=== PATIENT | female | born 1990 | race Caucasian/White ===

== ENCOUNTER → 2020-02-18 | Outpatient (CLI) | payer MEDICAID ==
[~2020-02-18] MED LIST: ACYC-114 PO; FENU500C PO; IBUP-1222 PO; IBUP-1223 PO; JUICE PLUS PO; MULT-658 PO; PREN1TAB60 PO
[2020-02-18 11:51] LABS: BASOPHILS # (AUTO) 0.02 x10^3/uL (0-0.1); BASOPHILS % (AUTO) 0 % (0-1); EOSINOPHILS # (AUTO) 0.02 x10^3/uL (0-0.4); EOSINOPHILS % (AUTO) 0 % (1-7); LYMPHOCYTES # (AUTO) 1.62 x10^3/uL (1-3.4); LYMPHOCYTES % (AUTO) 31 % (22-44); MD NO; MEAN CORPUSCULAR HGB CONC 34.1 g/dL (32.4-35.8); MEAN CORPUSCULAR VOLUME 93.8 fL (80-100); MEAN PLATELET VOLUME 9.7 fL (7.4-10.4); MONOCYTES # (AUTO) 0.23 x10^3/uL (0.2-0.8); MONOCYTES % (AUTO) 4 % (2-9); NEUTROPHILS % (AUTO) 64 % (42-75); PLATELET COUNT 239 x10^3/uL (130-400); RED BLOOD COUNT 4.53 x10^6/uL (3.82-5.3); RED CELL DISTRIBUTION WIDTH 13.2 % (9.6-15.2)
[2020-02-18 12:02] LABS: ANION GAP 4 mmol/L (5-15); CALCIUM 8.8 mg/dL (8.5-10.1); CHLORIDE 112 mmol/L (98-107); CREATININE 0.61 mg/dL (0.55-1.02)
== END | disposition home or self-care (01) ==
LOC: MERGE 11:00 → STAR 11:07
PROVIDERS: ATTEND Obstetrics & Gynecology Maternal & Fetal Medicine
DX: Z01.818 Encounter for other preprocedural examination (principal); Z11.59 Encounter for screening for other viral diseases; N94.6 Dysmenorrhea, unspecified; R10.2 Pelvic and perineal pain
CPT/HCPCS: 36415; 80048; 84702; 85025; U0001

== ENCOUNTER 2020-02-22 14:19 | Observation (INO) | payer MEDICAID ==
[~2020-02-22] VITALS: Ht 162.6 cm; Wt 62.2 kg
[2020-02-22 14:32] VITALS: BP 114/63
[2020-02-22] MEDS ORDERED: CHLORHEXIDINE 15 ML UDC MM STA (14:35)
[2020-02-22] MEDS ORDERED: LIDOCAINE-MPF 1%, 2ML INFIL ONE (14:35)
[2020-02-22] MEDS ORDERED: LACTATED RINGERS 1,000 ML IV ONE (14:35)
[2020-02-22] MEDS ORDERED: SCOPOLAMINE 1MG PATCH TD ONE (15:26)
[2020-02-22] MEDS ORDERED: ACETAMINOPHEN 500 MG TABLET ONE (15:26)
[2020-02-22] MEDS ORDERED: GABAPENTIN 300 MG CAPSULE ONE (15:26)
[2020-02-22] MEDS ORDERED: FLUORESCEIN SODIUM 500 MG/5 ML ONE (15:29)
[2020-02-22] MEDS ORDERED: NEOSPORIN OINT, 15GM ONE (15:29)
[2020-02-22] MEDS ORDERED: BUPIVACAINE/PF-EPI 0.25% 1:200K ONE (15:29)
[2020-02-22] MEDS ORDERED: FENTANYL PF 250 MCG/5ML ONE (15:34)
[2020-02-22] MEDS ORDERED: MIDAZOLAM 1 MG/ML, 2ML ONE (15:34)
[2020-02-22] MEDS ORDERED: ONDANSETRON 2MG/ML, 2ML ONE (17:30)
[2020-02-22] MEDS ORDERED: MEPERIDINE/PF 25MG/0.5ML IVPush PRN (17:30)
[2020-02-22] MEDS ORDERED: GLYCOPYRROLATE 0.2MG/1ML, 5ML ONE (17:30)
[2020-02-22] MEDS ORDERED: LABETALOL 5MG/ML, 20ML IV PRN (17:30)
[2020-02-22] MEDS ORDERED: ACETAMINOPHEN 325 MG TABLET PO PRN (17:30)
[2020-02-22] MEDS ORDERED: PROPOFOL 10 MG/ML, 20ML ONE (17:30)
[2020-02-22] MEDS ORDERED: DEXAMETHASONE 4 MG/ML, 1ML ONE (17:30)
[2020-02-22] MEDS ORDERED: OXYcodone 5 MG/5 ML ORAL.SOL UDC PO PRN (17:30)
[2020-02-22] MEDS ORDERED: FENTANYL PF 100 MCG/2ML IV PRN (17:30)
[2020-02-22] MEDS ORDERED: HYDROmorphone 2 MG/ML, 1ML IVPush PRN (17:30)
[2020-02-22] MEDS ORDERED: hydrALAzine 20 MG/ML, 1ML IV PRN (17:30)
[2020-02-22] MEDS ORDERED: ROCURONIUM 10MG/ML,5ML ONE (17:30)
[2020-02-22] MEDS ORDERED: DIAZEPAM 5 MG/ML, 2ML IVPush PRN (17:30)
[2020-02-22] MEDS ORDERED: NEOSTIGMINE 1 MG/ML, 10ML ONE (17:30)
[2020-02-22] MEDS ORDERED: ALBUTEROL SULFATE 2.5 MG/3 ML NPPB PRN (17:30)
[2020-02-22] MEDS ORDERED: SUCCINYLCHOLINE 20 MG/ML, 10ML ONE (17:30)
[2020-02-22] MEDS ORDERED: PROMETHAZINE 25 MG/ML, 1ML IV PRN (17:30)
[2020-02-22] MEDS ORDERED: CEFAZOLIN 1,000 MG ONE (17:30)
[2020-02-22] MEDS ORDERED: SUGAMMADEX 200 MG/2 ML IVPush ONE (17:31)
[2020-02-22] MEDS ORDERED: OXYcodone 5 MG/5 ML ORAL.SOL UDC ONE (18:19)
[2020-02-22] MEDS ORDERED: FENTANYL PF 100 MCG/2ML ONE (18:19)
[2020-02-22] MEDS ORDERED: MEPERIDINE/PF 25MG/ML,1ML ONE (18:20)
[2020-02-22] MEDS ORDERED: ONDANSETRON 2MG/ML, 2ML IV PRN (20:00)
[2020-02-22] MEDS ORDERED: morphine SULFATE 10 MG/ML, 1ML IV PRN (20:00)
[2020-02-22] MEDS: SIMETHICONE 80 MG CHEW TAB PO SCH (20:49)
[2020-02-22] MEDS: KETOROLAC 30 MG/1 ML IV SCH (20:49)
[2020-02-22 21:00] VITALS: BP 104/68
[2020-02-22] MEDS: DOCUSATE 100 MG CAPSULE PO SCH (22:26)
[2020-02-22] MEDS: OXYcodone/APAP 5/325MG TABLET PO PRN (22:27)
[2020-02-22 22:53] LABS: MEAN CORPUSCULAR HEMOGLOBIN 31.7 pg (27.0-34.8); MEAN CORPUSCULAR HGB CONC 33.8 g/dL (32.4-35.8); MEAN PLATELET VOLUME 9.5 fL (7.4-10.4); PLATELET COUNT 218 x10^3/uL (130-400); RED BLOOD COUNT 4.13 x10^6/uL (3.82-5.3); RED CELL DISTRIBUTION WIDTH 12.9 % (9.6-15.2)
[2020-02-22 23:24] LABS: BASOPHILS # (AUTO) 0.15 x10^3/uL (0-0.1); BASOPHILS % (AUTO) 1 % (0-1); EOSINOPHILS % (AUTO) 0 % (1-7); LYMPHOCYTES # (AUTO) 0.58 x10^3/uL (1-3.4); LYMPHOCYTES % (AUTO) 5 % (22-44); MD SCAN; MONOCYTES # (AUTO) 0.09 x10^3/uL (0.2-0.8); MONOCYTES % (AUTO) 1 % (2-9); NEUTROPHILS # (AUTO) 10.93 x10^3/uL (1.8-6.8); NEUTROPHILS % (AUTO) 93 % (42-75)
[2020-02-23] MEDS: LACTATED RINGERS 1,000 ML IV SCH ×3 (00:06→12:37)
[2020-02-23] MEDS: KETOROLAC 30 MG/1 ML IV SCH ×3 (01:42→13:49)
[2020-02-23 03:14] VITALS: BP 95/62
[2020-02-23] MEDS: OXYcodone/APAP 5/325MG TABLET PO PRN (05:38)
[2020-02-23 07:54] VITALS: BP 90/54
[2020-02-23] MEDS: DOCUSATE 100 MG CAPSULE PO SCH (08:25)
[2020-02-23] MEDS: SIMETHICONE 80 MG CHEW TAB PO SCH (08:25)
[2020-02-23] MEDS: OXYcodone/APAP 10/325MG TABLET PO PRN ×2 (09:15→13:49)
[2020-02-23] MEDS ORDERED: OXYcodone/APAP 10/325MG TABLET PO PRN (14:00)
[2020-02-23] MEDS ORDERED: IBUP-1222 PO (14:03)
[2020-02-23] MEDS ORDERED: MULT-658 PO (14:04)
[2020-02-23 15:03] VITALS: BP 99/61
[2020-02-23] MEDS ORDERED: OXYC-302 PO (15:42)
== END 2020-02-23 16:10 | disposition home or self-care (01) ==
LOC: OR 14:19 → 4NE 19:15 → OR 20:07
PROVIDERS: ADMIT Obstetrics & Gynecology; ATTEND Obstetrics & Gynecology Maternal & Fetal Medicine
DX: N94.6 Dysmenorrhea, unspecified (principal); G89.29 Other chronic pain; R10.2 Pelvic and perineal pain; M32.9 Systemic lupus erythematosus, unspecified; Z79.899 Other long term (current) drug therapy
CPT/HCPCS: 36415; 58552; 81025; 85014; 85018; 85025; 88307; 96374; 96376; G0378; J0690; J1100; J1885; J2175; J2250; J2405; J2704; J3010; J7120; J2710; J0330